=== PATIENT | male | born 1965 | race Caucasian/White ===

== ENCOUNTER 2018-04-25 20:15 | Observation (INO) ==
[2018-04-25] MEDS ORDERED: Aspirin 81 MG TAB.CHEW PO ONE (21:12)
[2018-04-25] MEDS ORDERED: Ondansetron 4 MG/2 ML VIAL IVP ONE (21:12)
[2018-04-25 21:46] LABS: Basophils # 0.1 K/mcL (0.0-0.2); Basophils % 0.8 %; Eosinophils # 0.4 K/mcL (0.0-0.6); Eosinophils % 3.1 %; Hematocrit 45.9 % (37.5-50.1); Hemoglobin 16.5 g/dL (12.9-16.9); Immature Granulocytes % 0.5 % (0-4); Lymphocytes # 2.1 K/mcL (0.6-4.6); Lymphocytes % 16.3 %; Mean Corpuscular HGB Conc 35.9 g/dL (31.6-35.5); Mean Corpuscular Hemoglobin 31.3 pg (28.0-33.3); Mean Corpuscular Volume 86.9 fL (83.0-100.0); Mean Platelet Volume 10.6 fL (9.4-12.4); Monocytes # 0.9 K/mcL (0.0-1.3); Monocytes % 6.8 %; Neutrophils # 9.2 K/mcL (1.6-8.9); Platelet Count 253 K/mcL (140-400); Red Blood Count 5.28 M/mcL (4.19-5.50); Red Cell Distribution Width 13.3 % (11.5-14.5); Segmented Neutrophils % 72.5 %
--- NOTE | 2018-04-25 21:53 | Emergency Department Note ---
Disposition Clinical Impression: Chest pain Qualifiers: Chest pain type: unspecified Qualified Code(s): R07.9 - Chest pain, unspecified Disposition: Admitted As Inpatient Condition: Good Time of Disposition: 00:30 Chest Pain HPI - General Chief Complaint: ED Chest Pain Stated Complaint: CP x 1 week Time Seen by Provider: 04/25/18 21:10 Source: patient Limitations: no limitations Vital Signs Reviewed: Yes Nursing Notes Reviewed: Yes - History of Present Illness HPI Narrative: Patient is a 52-year-old male who presents to [facility] ED with a chief complaint of chest pain. States his symptoms started approximately one week ago. He states it has been an ache in his left chest. Radiates to his right arm and causes some tingling in his hand. Also has had some shortness of breath with this though he has COPD. Denies any prior heart problems. No prior heart testing done. Past medical history significant for hypertension and hyperlipidemia as well as anxiety. Denies any nausea, vomiting , fever or chills. No abdominal pain, problems with urination or bowel movements. Pt complaint: chest pain Onset (ago): week(s) (1) Duration: intermittent Onset: during rest Pain Location: left chest Severity: moderate Severity scale (1-10): 6 Quality: aching Pain Radiation: RUE Improves with: nothing Worsens with: nothing Associated symptoms: Reports: dyspnea. Denies: nausea, vomiting, diaphoresis, fever, cough Treatments prior to arrival chest pain: none - Related Data Home Medications Medication Instructions Recorded Confirmed Fluticasone/Vilanterol [Breo 1 each IH DAILY 04/25/18 04/25/18 Ellipta 100-25 Mcg INH] Levothyroxine [Synthroid] [place] [address]/25/18 04/25/18 Lisinopril [Zestril] 40 mg PO DAILY 04/25/18 04/25/18 Montelukast [Singulair] 10 mg PO DAILY 04/25/18 04/25/18 Omeprazole [PriLOSEC] 20 mg PO DAILY 04/25/18 04/25/18 Simvastatin 04/25/18 Allergies Allergy/AdvReac Type Severity Reaction Status Date / Time No Known Allergies Allergy Verified 04/25/18 20:22 All systems ED: reviewed and negative except as stated. Chest Pain PMH - Past Medical History Medical history: Reports: COPD, hypertension, thyroid disease Psychiatric history: Reports: no psych history - Social History Smoking Status: Current every day smoker Alcohol use: Reports: occasionally Drug use: Reports: none Physical Exam - General Limitations: no limitations General appearance: alert, in no apparent distress - Head Head exam: atraumatic, normocephalic, normal inspection - Eye Eye exam: Present: normal appearance, EOMI - ENT ENT exam: normal exam, normal oropharynx, mucous membranes moist - Neck Neck exam: Present: normal inspection, full ROM, trachea midline - Chest Chest inspection: Present: normal inspection, symmetric chest wall rise - Respiratory Respiratory exam: Present: normal lung sounds bilaterally - Cardiovascular Cardiovascular exam: Present: regular rate, normal rhythm, normal heart sounds - Abdominal Exam Abdominal exam: Present: soft, Non-Tender. Absent: tenderness, distention, guarding, rebound, rigidity - Extremities Exam Extremities exam: Present: normal inspection, full ROM. Absent: tenderness, pedal edema - Neurological Exam Neurological exam: Present: alert, oriented X3 - Psychiatric Psychiatric exam: Present: normal affect, normal mood - Skin Skin exam: Present: warm, dry, intact, normal color Course Course Narrative: Patient seen and examined. Chest pain worse with exertion as well as some difficulty breathing. Cardiopulmonary workup initiated. - Reevaluation(s) Reevaluation #1: Labwork, imaging unremarkable. Concerned about possible unstable angina due to his symptoms being worse with exertion. We will admit for chest pain, ACS workup. I discussed with the hospitalist Dr. Hobbs who has accepted patient for admission. Time: 00:29 Vital Signs Temperature 98.1 F 04/25/18 20:22 Pulse Rate 95 04/25/18 20:22 Respiratory Rate 16 04/25/18 20:22 Blood Pressure 137/81 04/25/18 20:22 O2 Sat by Pulse Oximetry 96 04/25/18 20:22 Temperature 98.0 F 04/25/18 23:58 Pulse Rate 65 04/25/18 23:58 Respiratory Rate 18 04/25/18 23:58 Blood Pressure 114/68 04/25/18 23:58 O2 Sat by Pulse Oximetry 95 04/25/18 23:58 Oxygen Delivery Oxygen Delivery Room Air Chest Pain - Medical Records Medical records reviewed: Yes I reviewed the patient's medical records. - Lab Data Lab results reviewed: Yes I reviewed the patient's lab results. Result diagrams: 04/25/18 21:23 04/25/18 21:23 Lab Results 04/25/18 04/25/18 04/25/18 Range/Units 21:13 21:23 21:23 WBC 12.7 H (4.3-11.1) K/mcL RBC 5.28 (4.19-5.50) M/mcL Hgb 16.5 (12.9-16.9) g/dL Hct 45.9 (37.5-50.1) % MCV 86.9 (83.0-100.0) fL MCH 31.3 (28.0-33.3) pg MCHC 35.9 H (31.6-35.5) g/dL RDW 13.3 (11.5-14.5) % Plt Count 253 (140-400) K/mcL MPV 10.6 (9.4-12.4) fL Immature Gran % 0.5 (0-4) % Seg Neutrophils % 72.5 % Lymphocytes % 16.3 % Monocytes % 6.8 % Eosinophils % 3.1 % Basophils % 0.8 % Neutrophils # 9.2 H (1.6-8.9) K/mcL Lymphocytes # 2.1 (0.6-4.6) K/mcL Monocytes # 0.9 (0.0-1.3) K/mcL Eosinophils # 0.4 (0.0-0.6) K/mcL Basophils # 0.1 (0.0-0.2) K/mcL D-Dimer 367 (0-500) ng/mLFEU Sodium 138 (136-145) mEq/L Potassium 4.1 (3.5-5.1) mEq/L Chloride 106 (98-107) mEq/L Carbon Dioxide 26 (23-29) mEq/L BUN 14 (6-20) mg/dL Creatinine 0.68 L (0.70-1.30) mg/dL Est GFR ( Amer) > 60 (> 60) Est GFR (Non-Af Amer) > 60 (> 60) BUN/Creatinine Ratio 21 (6-26) Glucose 115 H (70-105) mg/dL Calculated Osmolality 287 (280-300) Calcium 9.4 (8.6-10.3) mg/dL Troponin I < 0.03 (< 0.04) ng/mL - Radiology Data Radiology results reviewed: Yes I reviewed the patient's radiology results. Chest X-Ray 04/25/18 21:13 IMPRESSION: No acute disease. D/ / Maximilian Chapa MD / Maximilian Chapa MD Interpreting Provider: Maximilian Chapa MD - EKG Data EKG attestation: Yes I reviewed and interpreted this EKG. EKG results narrative: EKG done at 2024 shows normal sinus rhythm with a rate of [address] elevation or depression. Normal axis. No prior EKG for comparison. Heart Score - Score History: Moderately Suspicious EKG: Normal Age: 45-65 Risk Factors: 1-2 risk factors Troponin: Less than normal limit HEART Score Total: 3
[2018-04-25 22:04] LABS: BUN/Creatinine Ratio 21 (6-26); Blood Urea Nitrogen 14 mg/dL (6-20); Calcium 9.4 mg/dL (8.6-10.3); Carbon Dioxide 26 mEq/L (23-29); Chloride 106 mEq/L (98-107); Glucose 115 mg/dL (70-105); Osmolality,Calculated 287 (280-300); Potassium 4.1 mEq/L (3.5-5.1); Sodium 138 mEq/L (136-145); Troponin I < 0.03 ng/mL (< 0.04); eGFR For African Americans > 60 (> 60); eGFR For Non-African Americans > 60 (> 60)
--- NOTE | 2018-04-25 23:09 | Emergency Department Note ---
Disposition Clinical Impression: Chest pain Qualifiers: Chest pain type: unspecified Qualified Code(s): R07.9 - Chest pain, unspecified Disposition: Admitted As Inpatient Condition: Good Referrals: Bernardino Angeles CNP [Primary Care Provider] - Latoya Godoy [Family Provider] - Forms: ED Satisfaction Letter General Adult HPI - General Chief complaint: ED Chest Pain Stated complaint: CP x 1 week Time Seen by Provider: 04/25/18 21:10 Source: patient Limitations: no limitations Nursing Notes Reviewed: Yes Vital Signs Reviewed: Yes - History of Present Illness Pain Scale: 0 - Related Data Allergies Allergy/AdvReac Type Severity Reaction Status Date / Time No Known Allergies Allergy Verified 04/25/18 20:22 Past Medical History - Past Medical History Medical history: Reports: COPD, hypertension, thyroid disease Psychiatric history: Reports: no psych history - Social History Smoking Status: Current every day smoker Smokeless Tobacco Status: No Alcohol use: Reports: occasionally Drug use: Reports: none Physical Exam - General Limitations: no limitations General appearance: alert, in no apparent distress Course Vital Signs Temperature 98.1 F 04/25/18 20:22 Pulse Rate 95 04/25/18 20:22 Respiratory Rate 16 04/25/18 20:22 Blood Pressure 137/81 04/25/18 20:22 O2 Sat by Pulse Oximetry 96 04/25/18 20:22 Temperature 98.1 F 04/25/18 20:22 Pulse Rate 78 04/25/18 22:20 Respiratory Rate 18 04/25/18 22:20 Blood Pressure 122/78 04/25/18 22:20 O2 Sat by Pulse Oximetry 92 04/25/18 22:20 Oxygen Delivery Oxygen Delivery Room Air Medical Decision Making - Lab Data Result diagrams: 04/25/18 21:23 04/25/18 21:23 Lab Results 04/25/18 04/25/18 04/25/18 Range/Units 21:13 21:23 21:23 WBC 12.7 H (4.3-11.1) K/mcL RBC 5.28 (4.19-5.50) M/mcL Hgb 16.5 (12.9-16.9) g/dL Hct 45.9 (37.5-50.1) % MCV 86.9 (83.0-100.0) fL MCH 31.3 (28.0-33.3) pg MCHC 35.9 H (31.6-35.5) g/dL RDW 13.3 (11.5-14.5) % Plt Count 253 (140-400) K/mcL MPV 10.6 (9.4-12.4) fL Immature Gran % 0.5 (0-4) % Seg Neutrophils % 72.5 % Lymphocytes % 16.3 % Monocytes % 6.8 % Eosinophils % 3.1 % Basophils % 0.8 % Neutrophils # 9.2 H (1.6-8.9) K/mcL Lymphocytes # 2.1 (0.6-4.6) K/mcL Monocytes # 0.9 (0.0-1.3) K/mcL Eosinophils # 0.4 (0.0-0.6) K/mcL Basophils # 0.1 (0.0-0.2) K/mcL D-Dimer 367 (0-500) ng/mLFEU Sodium 138 (136-145) mEq/L Potassium 4.1 (3.5-5.1) mEq/L Chloride 106 (98-107) mEq/L Carbon Dioxide 26 (23-29) mEq/L BUN 14 (6-20) mg/dL Creatinine 0.68 L (0.70-1.30) mg/dL Est GFR ( Amer) > 60 (> 60) Est GFR (Non-Af Amer) > 60 (> 60) BUN/Creatinine Ratio 21 (6-26) Glucose 115 H (70-105) mg/dL Calculated Osmolality 287 (280-300) Calcium 9.4 (8.6-10.3) mg/dL Troponin I < 0.03 (< 0.04) ng/mL Attestation Statement - Attestation Attestation: I, [place] MD, personally evaluated this patient and discussed their management with the resident physician. I reviewed the resident's note and agree with the documented findings, medical decision making, and plan of care. 52-year-old male presents to the emergency department with a complaint of intermittent left-sided chest pain for the past week. He states the episodes of pain are brief but frequent. He describes it as a dull achy tightness in the left chest. No radiation of the pain. No diaphoresis. Some nausea with the episodes. Also some shortness of breath. He does complain shortness of breath with exertion but states he is a smoker and has a history of COPD. The chest pain does not actually seem to be associated with exertion. No prior history of any known heart disease. His father did have heart disease. Patient is a smoker and has a history of hypertension and hyperlipidemia. On examination patient is a well-developed well-nourished well-appearing male in no acute distress. He is alert and oriented 3. There is no cyanosis or diaphoresis. Chest is nontender to palpation. Breath sounds are clear and equal bilaterally. Heart regular rate and rhythm. Abdomen soft and nontender with normal bowel sounds. No pedal edema. No gross focal neurological deficits. Labs reviewed. Troponin normal. D-dimer normal. Chest x-ray negative. EKG shows a normal sinus rhythm with ventricular rate of 96. No acute ST segment elevations or depressions. No arrhythmia or ectopy. The hospitalist, Dr. Hobbs, was consulted and accepted admission of the patient.
[2018-04-26] MEDS ORDERED: Naloxone 0.4 MG/ML INJ IVP PRN (00:11)
--- NOTE | 2018-04-26 00:20 | Internal Med History&Physical ---
Date of Encounter: 04/26/18 Time of Encounter: 00:05 Internal Medicine - H&P: HPI Chief complaint: Chest pain Admitted From: Home Plans for Post Hospital Care: Home History of present illness: Mr. Martins is a 52 year old male presented to ER for chest pain. Past medical history is significant for COPD, hypertension, hyperlipidemia, tobacco abuse. Patient has intermittent chest pain for about 1 week. The pain located on left chest, no radiation, dull, 1-3 out of 10. Every episode lasts for 5-10 minutes , patient has 4-5 episode every day. Patient has chronic shortness of breasts due to COPD. Patient denies nausea. Sometimes patient has diaphoresis when he has pain. Patient denies fever or cough. Patient was admitted for chest pain. Past Med Surg Social Fam HX - Past Medical History Medical history: COPD, hypertension, thyroid disease Psychiatric history: no psych history - Past Surgical History Additional surgical history: knee - Social History Smoking Status: Current every day smoker Packs per day: 1 1/2 Smokeless Tobacco Status: No Alcohol use: occasionally Drug use: none - Family History Father Living Status: Hx Family Cardiac Disorders: Yes Mother Living Status: Hx Family Cancer: Yes Brother Hx Family Cancer: Yes (bone and lung) Internal Medicine - H&P: Meds Fluticasone/Vilanterol [Breo Ellipta 100-25 Mcg INH] 1 each IH DAILY 04/25/18 [ History] Levothyroxine [Synthroid] 25 mcg PO 0630 04/25/18 [History] Lisinopril [Zestril] 40 mg PO DAILY 04/25/18 [History] Montelukast [Singulair] 10 mg PO DAILY 04/25/18 [History] Omeprazole [PriLOSEC] 20 mg PO DAILY 04/25/18 [History] Simvastatin 04/25/18 [History] 3 Allergy/AdvReac Type Severity Reaction Status Date / Time No Known Allergies Allergy Verified 04/25/18 20:22 All Systems PM: A 10-system review of systems was performed and is negative for pertinent findings except as documented above in the HPI. - Constitutional Vitals: Temp Pulse Resp BP Pulse Ox 98.0 F 65 18 114/68 95 04/25/18 23:58 04/25/18 23:58 04/25/18 23:58 04/25/18 23:58 04/25/18 23:58 General appearance: Present: A&O X 3, pleasant, no acute distress, answers questions appropriately - Head Head exam: Present: atraumatic, normocephalic - Eye Eye exam: Present: PERRL, conjuntiva pink, sclera anicteric Pupils: Present: PERRL - Neck Neck exam general surgery: Present: supple, trachea midline. Absent: lymphadenopathy - Respiratory Respiratory exam: Present: CTAB. Absent: accessory muscle use, rales, rhonchi, wheezes - Cardiovascular Cardiovascular exam: Present: RRR, +S1, +S2. Absent: diastolic murmur, gallop, rubs, systolic murmur - GI/Abdominal GI/Abdominal exam: Present: normal bowel sounds, soft, no peritoneal signs. Absent: distended, tenderness - Extremities Exam Extremities exam: Present: warm, radial pulses palpable and symmetrical. Absent : calf tenderness, cyanotic, pedal edema - Neurological Exam Neurological exam: Present: CN II-XII intact, oriented X3, no focal deficits. Absent: pronater drift, facial droop, speech deficit - Skin Skin exam: Present: dry, intact Internal Med - H&P Results - Labs CBC & Chem 7: 04/25/18 21:23 04/25/18 21:23 - EKG Data -: EKG Interpreted by Myself EKG shows normal: sinus rhythm Rate: normal - Assessment and plan (1) Hypertension Current Visit: Yes Status: Acute Assessment and plan: Continue home medications. Qualifiers: Hypertension type: essential hypertension Qualified Code(s): I10 - Essential (primary) hypertension (2) Tobacco abuse Current Visit: Yes Status: Acute Assessment and plan: Smoking cessation education. Nicotine patch. (3) Chest pain Current Visit: Yes Status: Acute Assessment and plan: Patient has chest pain intermittent for about 1 week. Need to rule out ACS as patient has history of hypertension, hyperlipidemia, and tobacco abuse. - Continuous cardiac monitoring - Track 3 sets of troponin - Echocardiogram - Stress test if troponin negative and the patient has no chest pain. Qualifiers: Chest pain type: unspecified Qualified Code(s): R07.9 - Chest pain, unspecified - Time Spent With Patient Total time spent is greater than 50% in coordination of care (as documented) at patient's floor/unit and/or counseling patient: 40 minutes Greater than 35 minutes
[2018-04-26 02:16] LABS: Basophils # 0.1 K/mcL (0.0-0.2); Basophils % 0.8 %; Eosinophils # 0.4 K/mcL (0.0-0.6); Eosinophils % 3.4 %; Hematocrit 42.4 % (37.5-50.1); Immature Granulocytes % 0.3 % (0-4); Lymphocytes # 2.7 K/mcL (0.6-4.6); Lymphocytes % 22.2 %; Mean Corpuscular HGB Conc 34.7 g/dL (31.6-35.5); Mean Corpuscular Hemoglobin 29.9 pg (28.0-33.3); Mean Corpuscular Volume 86.4 fL (83.0-100.0); Mean Platelet Volume 9.9 fL (9.4-12.4); Monocytes # 0.8 K/mcL (0.0-1.3); Monocytes % 6.5 %; Platelet Count 237 K/mcL (140-400); Red Blood Count 4.91 M/mcL (4.19-5.50); Red Cell Distribution Width 13.5 % (11.5-14.5); Segmented Neutrophils % 66.8 %
[2018-04-26 02:20] LABS: Hemoglobin 14.7 g/dL (12.9-16.9)
[2018-04-26 02:32] LABS: BUN/Creatinine Ratio 23 (6-26); Blood Urea Nitrogen 15 mg/dL (6-20); Calcium 9.2 mg/dL (8.6-10.3); Carbon Dioxide 27 mEq/L (23-29); Chloride 107 mEq/L (98-107); Glucose 106 mg/dL (70-105); Magnesium 1.9 mg/dL (1.6-2.6); Osmolality,Calculated 285 (280-300); Potassium 4.3 mEq/L (3.5-5.1); Sodium 137 mEq/L (136-145); eGFR For African Americans > 60 (> 60); eGFR For Non-African Americans > 60 (> 60)
[2018-04-26] MEDS ORDERED: Regadenoson 0.4 MG/5 ML SYRINGE IVP ONE (06:12)
[2018-04-26] MEDS ORDERED: Levothyroxine 25 MCG TABLET PO SCH (06:30)
[2018-04-26] MEDS ORDERED: Lisinopril 20 MG TABLET PO SCH (09:00)
[2018-04-26] MEDS ORDERED: BREO ELLIPTA IH SCH (09:00)
[2018-04-26] MEDS ORDERED: Nicotine 21 MG PATCH.TD24 TD SCH (09:00)
--- NOTE | 2018-04-26 16:13 | Discharge Summary ---
- NOTES TO OUTPATIENT PROVIDER Notes to Outpatient Provider: Patient was seen and assessed at bedside at 10:30 AM. He was admitted for chest pain, left chest without radiation episodes lasting approximately 5-10 minutes 4-5 times a day. Stress test was negative for ischemia or infarct, gaited EF of 59%. Echocardiogram shows LVEF of 55%, mild LV DD, mild TR. Troponins were negative, vitals were stable. Pt with mild COPD exacerbation and recent anxiety, both of which could be causing chest pain. Recommend follow up with pcp and further evaluation if chest pain persists. Orders not resulted at time of discharge: Pending orders 04/26/18 00:14 NM miah perf SPECT multi [NM] Routine Date of Encounter: 04/26/18 Time of Encounter: 10:30 - Discharge Diagnosis (1) Chest pain Priority: Primary Status: Acute Assessment and Plan: Patient denies chest pain today. Troponins negative, Chest xray negative, echocardiogram with EF of 55%, mild LV DD, mild TR. Stress test negative for ischemia or infarct with gated EF of 59%. Patient has COPD, new life stressors and anxiety which could be causing chest pain. Recommend follow-up with primary care, further workup if chest pain persists. Qualifiers: Chest pain type: unspecified Qualified Code(s): R07.9 - Chest pain, unspecified (2) Hypertension Priority: Secondary Status: Acute Assessment and Plan: Chronic. Continue home medications. Qualifiers: Hypertension type: essential hypertension Qualified Code(s): I10 - Essential (primary) hypertension (3) Tobacco abuse Priority: Secondary Status: Chronic Assessment and Plan: Smoking cessation education. Nicotine patch. Pt states that he knows that he needs to quit, and will try, however, he was caught by nursing staff trying to leave the unit to smoke. Hospital course: Mr. Martins is a 52 year old male with past medical history of HTN, smoking. Pt presented with chest pain, stress negative and echo with pEF. Pt and I discussed risk factor modification, pt states that he wants to stop smoking but denies need for nicotine replacement therapy. Labs and vitals are stable and WNL. He is stable and appropriate for discharge. Discharge discussed with: patient, family Time spent discussing smoking cessation with patient: 3 to 10 minutes - Time Spent with Patient Total time spent providing and/or coordinating discharge services: Less than 30 minutes - Discharge Medications Home Medications: Fluticasone/Vilanterol [Breo Ellipta 100-25 Mcg INH] 1 each IH DAILY 04/25/18 [ History] Levothyroxine [Synthroid] 25 mcg PO 0630 04/25/18 [History] Lisinopril [Zestril] 40 mg PO DAILY 04/25/18 [History] Montelukast [Singulair] 10 mg PO DAILY 04/25/18 [History] Omeprazole [PriLOSEC] 20 mg PO DAILY 04/25/18 [History] Atorvastatin [Lipitor] 40 mg PO HS 04/26/18 [History] Ergocalciferol (VITAMIN D2) [Vitamin D2] 50,000 unit PO QWEEK 04/26/18 [History] Allergies/Adverse Reactions: 3 Allergy/AdvReac Type Severity Reaction Status Date / Time No Known Allergies Allergy Verified 04/25/18 20:22 Date of admission: 04/25/18 23:17 Primary care physician: Bernardino Angeles CNP Discharging clinician: Brigida Moreno Anticipated date of discharge: 04/26/18 - Constitutional Vitals: Temp Pulse Resp BP Pulse Ox 97.7 F 70 17 166/90 97 04/26/18 11:22 04/26/18 11:22 04/26/18 11:22 04/26/18 11:22 04/26/18 11:22 General appearance: Present: A&O X 3, pleasant, no acute distress, answers questions appropriately - Head Head exam: Present: atraumatic, normal inspection, normocephalic - Eye Eye exam: Present: normal appearance, conjuntiva pink, sclera anicteric - Neck Neck exam general surgery: Present: supple, trachea midline. Absent: lymphadenopathy, tenderness - Respiratory Respiratory exam: Present: CTAB. Absent: accessory muscle use, chest wall tenderness, rales, rhonchi, wheezes - Cardiovascular Cardiovascular exam: Present: RRR, +S1, +S2. Absent: diastolic murmur, gallop, rubs, systolic murmur - GI/Abdominal GI/Abdominal exam: Present: normal bowel sounds, soft. Absent: distended, hepatomegaly, tenderness - Extremities Exam Extremities exam: Present: normal capillary refill, normal inspection, warm, radial pulses palpable and symmetrical. Absent: calf tenderness, cyanotic, pedal edema, tenderness - Neurological Exam Neurological exam: Present: alert, oriented X3, no focal deficits. Absent: facial droop, speech deficit - Skin Skin exam: Present: dry, intact, normal color, warm. Absent: rash - Patient Status Disposition: Home, Self-Care Condition: Good Functional capacity at discharge: independent ambulation Overall status at discharge: patient is back to baseline - Discharge Instructions Follow Up With: Bernardino Angeles CNP [Primary Care Provider] - 04/30/18 9:45 am Latoya Godoy [Family Provider] - Additional Instructions: Please follow up with your PCP in the next 5-7 days for a recheck. Return to your normal activities and diet as tolerated. Resume your normal medications Stop smoking!!!!! - Diet and Activity Activity: increase activity as tolerated Diet: low fat, low cholesterol
[2018-04-26 16:19] VITALS: BP 166/90
--- NOTE | 2018-04-26 16:26 | Electrocardiograph Report ---
[address] [address] Test Date: 2018-04-25 Pat Name: Yrn Martins Department: 102 Room: 3B38 Gender: M [employer]: Liuz : 1965 Requested By: [place] Order Number: [id number] Reading MD: Susanne Bautista Measurements Intervals [place] Rate: 96 P: 57 AR: 153 QRS: 38 QRSD: 88 T: 33 QT: 330 QTc: 384 Interpretive Statements SINUS RHYTHM Electronically Signed On 04-26-2018 16:24:45 EDT by Susanne Bautista
== END 2018-04-26 17:02 | disposition home or self-care (01) ==
LOC: 3BNU 20:15 → EMEROO 20:15 → 3BNU 23:31
PROVIDERS: ADMIT Internal Medicine; ATTEND Internal Medicine